=== PATIENT | female | born 1965 | race Caucasian/White ===

== ENCOUNTER 2021-05-17 19:33 | Emergency (ER) | payer MEDICARE, MEDICAID ==
[2021-05-17 19:42] VITALS: BP 142/90
[2021-05-17] MEDS ORDERED: TETANUS/DIPHTHERIA/PERTUSSIS 0.5 ML SYRINGE IM ONE (19:54)
--- NOTE | 2021-05-17 19:54 | ED Physician Documentation ---
PD HPI SKIN - Stated complaint Stated Complaint: FALL,CHIN LAC - Chief complaint Chief Complaint: Laceration - History obtained from History obtained from: Patient - Additional information Additional information: Patient presented after a trip and fall while outside. She was walking in the street and the lighting was poor and she missed stepped. She fell and hit her chin on the ground. No other head injuries, no loss of consciousness. Denies any extremity injuries, no back or neck pain.She is unsure of her last tetanus shot. Patient states that her daughter's wedding is tomorrow and she would like the dressing to be as minimal as possible. Review of Systems Ten Systems: 10 systems reviewed and negative Skin: reports: Laceration (s) (Chin) PD PAST MEDICAL HISTORY - Allergies Allergies/Adverse Reactions: Allergies Allergy/AdvReac Type Severity Reaction Status Date / Time Iodine and Iodide Containing Allergy Rash Verified 05/17/21 19:44 Produc Penicillins Allergy Rash Verified 05/17/21 19:42 shellfish derived Allergy Respiratory Verified 05/17/21 19:43 PD ED PE NORMAL - Vitals Vital signs reviewed: Yes - General General: Alert and oriented X 3, No acute distress, Well developed/nourished - HEENT HEENT: Atraumatic, Moist mucous membranes, Pharynx benign - Neck Neck: Supple, no meningeal sign, No JVD - Cardiac Cardiac: RRR, No murmur - Respiratory Respiratory: No respiratory distress, Clear bilaterally - Derm Derm: Normal color, Warm and dry, Other (There is a 1.5 cm shallow chin laceration on the left side of the chin.) Results - Vitals Vitals: Vital Signs - 24 hr 05/17/21 19:39 Heart Rate 70 Respiratory 16 Rate Blood Pressure 142/90 H O2 Saturation 95 Oxygen O2 Source Room air PD MEDICAL DECISION MAKING - ED course Complexity details: d/w patient ED course: Patient presented with a chin laceration. The wound is fairly superficial and I did give the patient option between sutures or Dermabond with Steri-Strips and patient elected for Dermabond and Steri-Strips. We cleaned the wound thoroughly with normal saline and closed as above. She tolerated well. Advised to use a cool compress on the area and home wound care instructions provided. Return precautions reviewed in detail with the patient. Departure - Departure Disposition: 01 Home, Self Care Clinical Impression: Laceration Condition: Good Instructions: ED Laceration Facial Skin Glue Comments: You presented with a chin laceration after a fall. Laceration Was cleaned thoroughly and closed with Dermabond glue and Steri-Strips. Please follow instructions as provided on your discharge paperwork. Your wound should stay clean and dry. The Steri-Strips and glue will slowly fall off over the course of the next 4 to 5 days at which time there will be wound healing. If there are signs of infection such as redness, swelling, purulent drainage or other new concerns, return to the ER. We did update your Tetanus, diphtheria and pertussis vaccine today.
== END 2021-05-17 20:22 | disposition home or self-care (01) ==
LOC: ED 19:33
DX: S01.81XA Laceration without foreign body of other part of head, initial encounter (principal); W01.0XXA Fall on same level from slipping, tripping and stumbling without subsequent striking against object, initial encounter; Y93.01 Activity, walking, marching and hiking; Y92.410 Unspecified street and highway as the place of occurrence of the external cause
CPT/HCPCS: 90471; 99282; 99283